=== PATIENT | male | born 1985 | race Caucasian/White ===

== ENCOUNTER 2019-06-21 15:03 | Emergency (ER) | payer SELFPAY ==
[2019-06-21 15:07] VITALS: BP 130/81; PULSE 88; RESP 14; TEMP 37.2; O2SAT 99
--- NOTE | 2019-06-21 15:17 | ED.GENADUL_ITS ---
Discharge Plan Disposition Patient Disposition: HOME Condition: Stable Discharge Details Chief Complaint: Nk/Back Pain Clinical Impression: Back pain Primary Care Provider: None,None ED Provider: Ruiz Sterling Home Meds and New Rx's Prescriptions: No Action No Known Home Meds RF: 0 Discharge Instructions Instructions: Back Pain (ED) Additional Instructions: [id number] medications as directed for symptomatic control. Cool and/or warm compresses every 2 hours for 20 minutes. Gentle stretching as tolerated. Please watch for new or worsening symptoms and return to the ER for any concerns. I do recommend that you follow-up with your primary care provider in the next few days for prompt outpatient reevaluation Discharge Data Discharge Date/Time-TO BE ENTERED AT DEPARTURE: 06/21/19 18:08 Medical Decision Making <DEANGELO Khan - Last Filed: 06/22/19 11:24> Patient is a pleasant 33-year-old male presenting today with chief complaint of lumbar back pain. 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 He reports that he had balanced an 80 pound bag of concrete onto a wheelbarrow. He turned to get something to open the bag when the concrete began to fall. He quickly rotated back to catch the bag and had a sudden onset of pain when doing so. Since that time, he reports that he has had increasing discomfort along his lumbar spine. Describes this as spasm. Reports feeling very tight. He denies any sensory changes. Has not noted any weakness. Finds that bending forward in particular greatly exacerbates his discomfort. He denies any change in bowel or bladder habits. No previous trauma. He did not fall associated with this. Did not have back pain prior to this. He did take Aleve prior to arrival without any relief of his discomfort. On exam, patient appears nontoxic. He does appear uncomfortable with movement. He has only mild tenderness over the midline of lumbar spine, pain is much more exquisite on the paraspinal aspect of the lumbar spine bilaterally. He does have notable spasm in this area. Pain does extend up towards the SI joint minimal palpation over this area. He has no saddle paresthesias, 5 out of 5 strength bilaterally, reflexes intact. He is able to straight leg raise bilaterally without any discomfort. Patient had initially been offered Tylenol, Lidoderm patch and Valium for his muscle spasm. He declines any muscle relaxants at this time given his family history of medication abuse. I would like to obtain a postvoid residual. Will obtain lumbar spine x-rays. At the end of my shift, care was transitioned to Ruiz Sterling PA-C with imaging and disposition pending. <DEANGELO Lomas - Last Filed: 06/21/19 18:31> I accepted care from DEANGELO Lanier at shift change, please see her full HPI. Patient presents after twisting to catch an 80 pound bag of concrete. He does not want muscle relaxers. Already took ibuprofen, given Tylenol and a Lidoderm patch here. Upon evaluation he appears well, no acute distress. He is able to stand without difficulty, has full range of motion of his lower extremities and back, and is neurologically intact. He has diffuse lumbar discomfort, no midline point tenderness, and bilateral mild paravertebral spasms. Negative straight leg raise bilaterally. 5/5 strength, reflexes intact. No saddle paresthesias. X-ray and post residual pending. X-ray lumbar spine read by virtual radiology as negative. Post residual bladder scan shows 32 cc. Extremely low suspicion for cauda equina, acute bony abnormality. Examination certainly consistent with muscular discomfort and mild spasm. Again patient does not want any muscle relaxer. He appears well, nontoxic and neurologically intact. No radicular pain. No clear indication for advanced imaging such as CT. Patient is reporting some relief with the ibuprofen that he took prior to arrival, Tylenol, Lidoderm. He is comfortable discharge. He will take upke-aid-kltmtow medica tion, gentle stretching, cool and/or warm compresses as tolerated. Patient has no additional questions or concerns this comfortable discharge. Upon discharge he ambulates steadily. HPI <DEANGELO Khan - Last Filed: 06/22/19 11:24> General Mode of arrival: ambulatory . Date/Time Provider Initiated Documentation: 06/21/19 15:10 . Limitations to Documentation: no limitations . Information obtained by: patient . History of Present Illness 33 year old M presents to the emergency department with the chief complaint of Lumbar back pain, described as moderate, with intensity rated at 4. Quality is described as aching, and is localized to the back. Patient reports no radiation. Patient started experiencing this hour(s) and it has been constant. Immobilization improves symptom(s), Movement worsens symptoms . Patient notes no other symptoms.. Patient did receive the following treatments prior to arrival, NSAID Related Data Home Medications Medication Instructions Recorded Confirmed Unknown [No Known Home Meds] 06/21/19 06/21/19 Allergies Allergy/AdvReac Type Severity Reaction Status Date / Time No Known Allergies Allergy Unverified 06/21/19 15:12 General Stated Complaint: Nk/Back Pain ASHELY: 3 Review of Systems <DEANGELO Khan - Last Filed: 06/22/19 11:24> Constitutional Constitutional: Reports as per HPI, Denies chills, Denies fatigue, Denies fever(s), Denies frequent falls and Denies headache(s) Eyes Eyes: Denies change in vision ENT Ears, Nose, Mouth, and Throat: Denies headache(s) Cardiovascular Cardiovascular: Denies chest pain, Denies dyspnea and Denies dyspnea on exertion Respiratory Respiratory: Denies cough, Denies dyspnea and Denies dyspnea on exertion Gastrointestinal Gastrointestinal: Denies abdominal pain, Denies change in bowel habits and Denies fecal incontinence Genitourinary Genitourinary: Reports as per HPI, Denies urinary hesitancy and Denies urinary incontinence Musculoskeletal Musculoskeletal: Reports as per HPI, Reports back pain, Denies muscle weakness, Denies numbness, Denies radiating pain into limb, Reports stiffness and Denies tingling Integumentary/Breasts Skin/Breast: Reports as per HPI and Denies rash Neurologic Neurologic: Reports as per HPI, Denies frequent falls, Denies headache(s), Denies localized weakness, Denies numbness, Denies radicular pain, Denies sensory deficit, Denies tingling and Denies paresthesias Endocrine Endocrine: Denies fatigue PFSH <DEANGELO Khan - Last Filed: 06/22/19 11:24> Social History Smoking/Tobacco Use Status: Current every day Alcohol Intake: current Drug use: Never Do you feel safe at home: Yes Do you feel safe in your relationship?: Yes Exam <DEANGELO Khan Last Filed: 06/22/19 11:24> Const General: cooperative, healthy appearing, uncomfortable (comfortableat rest, moving slow and appears uncomfortable with movement), no acute distress, well developed and well groomed Nutritional Appearance: average body habitus and well nourished Orientation: alert and awake Eyes General: appearance normal, both eyes and all related structures Neck Neck: normal visual inspection, full ROM, no lymphadenopathy and no meningeal signs Resp Effort & Inspection: normal respiratory effort and able to speak in complete sentences Auscultation: clear to auscultation bilaterally, no rales, no rhonchi and no wheezes Cardio Rate: regular rate Rhythm: regular rhythm Heart Sounds: S1 normal and S2 normal GI Inspection: normal to inspection Back/Spine/Pelvis Back: no CVA tenderness Cervical Spine: normal cervical lordosis and cervical ROM normal Thoracic/Lumbar Spine: No thoraco-lumbar ROM normal, straight leg raise negative bilaterally, bend over test abnormal, pain with thoraco-lumbar ROM, paraspinal tenderness (bilateral lumbar), thoraco-lumbar ROM limited, No scoliosis, thoraco-lumbar spasm (lumbar spasm bilateral lumbar spine), No thoracic spinal tenderness, No lumbar spinal tenderness (no pain directly over midline) and No straight leg raise positive Pelvis: no pain with anterior-posterior compression and no pain with lateral compression Sacroiliac joints: bilaterally tender to palpation (mild tenderness bilaterally) Sacrum: no tenderness Skin General skin exam: no rashes or lesions noted Neuro General: patient alert and patient awake Cognition: normal cognition Speech: speech normal Gait: normal gait Motor: muscle tone normal throughout, strength 5/5 throughout, no movement abnormalities noted and no fasciculations Sensory Exam: no sensory deficits noted (no saddle paresthesias) DTR's: Rt Patellar: 2+, Lt Patellar: 2+, Rt Ankle: 2+ and Lt Ankle: 2+ Extrem General: normal to inspection, full ROM, capillary refill normal, no joint enlargement, no pedal edema, no calf tenderness and normal gait Psych Appearance: grossly normal and well kempt Mental Status: mental status grossly normal Speech and Movement: speech and movement normal Course <DEANGELO Khan - Last Filed: 06/22/19 11:24> Vital Signs Vital signs: Vital Signs Temperature 37.2 C 06/21/19 15:07 Pulse 88 06/21/19 15:07 Respiratory Rate 14 06/21/19 15:07 Blood Pressure 130/81 06/21/19 15:07 Pulse Oximetry 99 06/21/19 15:07 Temperature 37.2 C 06/21/19 15:07 Temperature Source Skin 06/21/19 15:07 Pulse 88 06/21/19 15:07 Respiratory Rate 14 06/21/19 15:07 Blood Pressure 130/81 06/21/19 15:07 Blood Pressure Position Sitting 06/21/19 15:07 Pulse Oximetry 99 06/21/19 15:07 Oxygen Delivery Method Room Air 06/21/19 15:07 Oxygen Flow Rate 0 06/21/19 15:07 Pain Level 4 06/21/19 15:07 Sign Out <DEANGELO Khan - Last Filed: 06/22/19 11:24> Sign Out Data: Sign Out Comment: Care transitioned with imaging and disposition pending. Took NSAID prior to arrival, augmented with Tylenol and Lidoderm patch. Last updated by Shaina Lanier PA at 06/21/19 16:01
[2019-06-21] MEDS: Acetaminophen 500 MG TAB 1000 MG PO (15:43)
[2019-06-21] MEDS: diazePAM 5 MG TAB PO (15:43)
[2019-06-21] MEDS: Lidocaine 5% Patch 1 PATCH TP (15:43)
--- NOTE | 2019-06-21 15:45 | DI.RAD_ITS ---
EXAM: XR LUMBAR SPINE COMPLETE CLINICAL HISTORY: pain after twisting injury. TECHNIQUE: 2D digital imaging was performed. COMPARISON: No exams were available for comparison FINDINGS: BONES: No fracture or destructive lesion. Vertebral bodies are unremarkable. No facet hypertrophy andrei ntified. DISKS: Intervertebral disc spaces are maintained. ALIGNMENT: Lumbar spinal alignment is within normal limits. SOFT TISSUE: Normal. IMPRESSION: Unremarkable radiographs of the lumbar spine. DATA REPOSITORY: RADIATION DOSE DELIVERED:
--- NOTE | 2019-06-21 16:20 | DI.VRAD_ITS ---
PROCEDURE INFORMATION: Exam: XR Lumbosacral Spine, 4 or 5 Views Exam date and time: 06/21/2019 4:05 PM Age: 33 years old Clinical indication: Low back pain; Patient HX: Pain after twisting injury TECHNIQUE: Imaging protocol: XR of the lumbosacral spine, 4 or 5 views. COMPARISON: No relevant prior studies available. FINDINGS: Vertebrae: Normal. No acute fracture. Normal alignment. Soft tissues: Normal. IMPRESSION: No acute findings. Dictated and Authenticated by: Arron Crawley MD. Ordering:STANISLAV Merritt MD
== END 2019-06-21 18:08 | disposition home or self-care (01) ==
PROVIDERS: Emergency Provider Physician Assistant
DX: M54.5 Low back pain (principal); X50.9XXA Other and unspecified overexertion or strenuous movements or postures, initial encounter; Y99.0 Civilian activity done for income or pay; M62.830 Muscle spasm of back
CPT/HCPCS: 99283; 72110

== ENCOUNTER 2020-03-23 00:42 | Emergency (ER) | payer MEDICAID, SELFPAY ==
[2020-03-23 00:46] VITALS: BP 170/95; PULSE 102; RESP 18; TEMP 36.8; O2SAT 96
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
== END 2020-03-23 01:00 | disposition home or self-care (01) ==
LOC: ER 01:01
PROVIDERS: Emergency Provider Student in an Organized Health Care Education/Training Program
DX: S86.112A Strain of other muscle(s) and tendon(s) of posterior muscle group at lower leg level, left leg, initial encounter (principal); V48.5XXA Car driver injured in noncollision transport accident in traffic accident, initial encounter
CPT/HCPCS: 99282; 99283